=== PATIENT | female | born 1965 | race American Indian/Alaskan Native ===

== ENCOUNTER 2017-02-03 15:44 | Outpatient (CLI) | payer OTHER ==
--- NOTE | 2017-02-07 10:36 | Ultrasound Report ---
ULTRASOUND THYROID SCAN HISTORY: Thyroid nodule. COMPARISON: 02/24/15. FINDINGS: The right thyroid lobe measures 5.8 x 1.9 x 2.0 cm. There at least 3 nodules in the right thyroid lobe. The largest nodule is a complex nodule at mid pole measuring 2.6 x 1.7 x 1.7 cm. There are 2 tiny nodules at the inferior pole of the right thyroid lobe measuring up to 5 mm. The left thyroid lobe measures 5.7 x 1.4 x 1.9 cm. They are approximately 5 nodules in mid left thyroid lobe. The most inferior nodule is the largest measuring 1.2 x 1.3 x 0.9 cm. The remaining nodules measure less than 6 mm. There are 2 tiny hypoechoic nodules in the isthmus measuring up to 3 mm. Impression: Mildly enlarged thyroid gland with multiple bilateral nodules suggesting a multinodular goiter. The most complex nodule is in the mid right thyroid lobe. See above. No overwhelming change is appreciated since 02/24/15 exam.
== END 2017-02-03 15:45 | disposition home or self-care (01) ==
LOC: US 15:44
PROVIDERS: ATTEND Internal Medicine
DX: E04.1 Nontoxic single thyroid nodule (principal)
CPT/HCPCS: 76536